=== PATIENT | female | born 1970 | race Caucasian/White ===

== ENCOUNTER 2024-12-26 13:53 | Observation (INO) | payer BC ==
[~2024-12-26] VITALS: Ht 152.4 cm; Wt 72.6 kg
[2024-12-26] MEDS ORDERED: Ketorolac Tromethamine 30 MG/ML VIAL IM ONE (14:05)
[2024-12-26] MEDS ORDERED: methylPREDNISolone sod succ 125 MG VIAL IM ONE (14:10)
[2024-12-26] MEDS ORDERED: MORPHINE Sulfate 2 MG/ML SYR IV ONE (14:15)
[2024-12-26] MEDS ORDERED: diazePAM 10 MG/2 ML SYR IV ONE (14:15)
[2024-12-26 15:08] VITALS: BP 144/93
[2024-12-26 15:47] VITALS: BP 127/84
[2024-12-26 17:00] VITALS: BP 148/85
[2024-12-26] MEDS ORDERED: ACETAMINOPHEN 650 MG SUPP R PRN (17:10)
[2024-12-26] MEDS ORDERED: BISACODYL 5 MG TAB PO PRN (17:10)
[2024-12-26] MEDS ORDERED: ACETAMINOPHEN 325 MG TAB PO PRN (17:10)
[2024-12-26] MEDS ORDERED: TEMAZEPAM 15 MG CAP PO PRN (17:10)
[2024-12-26] MEDS ORDERED: Magnesium Hydroxide 30 ML UDC PO PRN (17:10)
[2024-12-26] MEDS ORDERED: BISACODYL 10 MG SUPP R PRN (17:10)
[2024-12-26] MEDS ORDERED: Ondansetron Hydrochloride 4 MG/2 ML VIAL IV PRN (17:10)
[2024-12-26] MEDS ORDERED: ZEPBOUND7.5 MG/0.5 SQ (17:19)
[2024-12-26] MEDS ORDERED: GLIMEPIRIDE4 M1 PO (17:20)
[2024-12-26] MEDS ORDERED: LOSARTAN POTASS50 M1 PO (17:20)
[2024-12-26] MEDS ORDERED: TRADJENTA5 M1 PO (17:20)
[2024-12-26 17:29] LABS: BASO # 0.1 10*3/uL (0.0-0.1); BASO % 0.5 % (0.0-1.0); EOS # 0.2 10*3/uL (0.0-0.4); EOS % 1.9 % (1.0-4.0); MEAN CELL VOLUME 92.4 fl (81.0-99.0); MEAN CORPUSCULAR HGB 30.3 pg (27.0-31.0); MEAN CORPUSCULAR HGB CONC 32.7 g/dl (33.0-37.0); MEAN PLATELET VOLUME 8.8 fl (9.6-12.3); MONO # 0.7 10*3/uL (0.1-1.0); MONO % 6.6 % (3.0-9.0); NEUT # 6.4 10*3/uL (2.3-7.9); NEUT % 63.7 % (47.0-73.0); PLATELET COUNT AUTOMATED 337 10*3/uL (130-400); RED BLOOD COUNT 4.76 10*6/uL (4.10-5.10); RED CELL DISTRI WIDTH 12.4 % (0-14.5); WHITE BLOOD COUNT 10.1 10*3/uL (4.8-10.8)
[2024-12-26] MEDS ORDERED: Dexamethasone Sodium Phospha 20 MG/5 ML VIAL IV ONE (17:30)
[2024-12-26] MEDS ORDERED: DEXTROSE 50% 25 GM/50 ML VIAL IV PRN (17:35)
[2024-12-26 18:01] LABS: BUN 11 mg/dl (9-23); CHLORIDE 107 mmol/L (98-107); POTASSIUM 4.5 mmol/L (3.4-5.1)
[2024-12-26] MEDS ORDERED: ACETAMINOPHEN 325 MG TAB PO SCH (18:11)
[2024-12-26 20:00] VITALS: BP 153/91
[2024-12-26] MEDS ORDERED: IBUPROFEN 600 MG TAB PO SCH (20:00)
[2024-12-26] MEDS ORDERED: INSULIN LISPRO 1 UNIT/0.01 ML SQ SCH (22:00)
[2024-12-27] VITALS: BP 149/86
[2024-12-27 06:21] LABS: ALKALINE PHOSPHATASE 123 U/L (46-116); BASO % 0.2 % (0.0-1.0); BUN 12 mg/dl (9-23); CHLORIDE 104 mmol/L (98-107); CHOLESTEROL 228 mg/dL (<200); EOS % 0.2 % (1.0-4.0); HEMATOCRIT 41.3 % (37.0-47.0); LDL CHOLESTEROL 178 mg/dL (9-159); MEAN CELL VOLUME 90.6 fl (81.0-99.0); MEAN CORPUSCULAR HGB 30.7 pg (27.0-31.0); MEAN CORPUSCULAR HGB CONC 33.9 g/dl (33.0-37.0); MEAN PLATELET VOLUME 9.4 fl (9.6-12.3); MONO # 0.2 10*3/uL (0.1-1.0); MONO % 3.2 % (3.0-9.0); NEUT % 79.5 % (47.0-73.0); PLATELET COUNT AUTOMATED 318 10*3/uL (130-400); POTASSIUM 4.3 mmol/L (3.4-5.1); RED BLOOD COUNT 4.56 10*6/uL (4.10-5.10); RED CELL DISTRI WIDTH 12.2 % (0-14.5); SGPT/ALT 354 U/L (5-49); TOTAL PROTEIN 7.1 gm/dL (6.0-8.0); TRIGLYCERIDES 81 mg/dl (<150); WHITE BLOOD COUNT 6.3 10*3/uL (4.8-10.8)
[2024-12-27 08:00] VITALS: BP 194/87
[2024-12-27 08:21] LABS: VITAMIN D, 25-HYDROXY 25.9 ng/mL (30-100)
[2024-12-27] MEDS ORDERED: Enoxaparin Sodium 40 MG/0.4 ML SYR SC SCH (10:00)
[2024-12-27 12:00] VITALS: BP 169/96
[2024-12-27 16:00] VITALS: BP 166/68
[2024-12-27 20:00] VITALS: BP 171/93
[2024-12-28] VITALS: BP 144/65
[2024-12-28 05:45] LABS: ALKALINE PHOSPHATASE 93 U/L (46-116); BUN 14 mg/dl (9-23); CHLORIDE 106 mmol/L (98-107); POTASSIUM 3.7 mmol/L (3.4-5.1); SGPT/ALT 167 U/L (5-49); TOTAL PROTEIN 6.2 gm/dL (6.0-8.0)
[2024-12-28 06:09] LABS: BASO % 0.4 % (0.0-1.0); EOS # 0.2 10*3/uL (0.0-0.4); HEMATOCRIT 37.7 % (37.0-47.0); MEAN CELL VOLUME 92.2 fl (81.0-99.0); MEAN CORPUSCULAR HGB 30.8 pg (27.0-31.0); MEAN CORPUSCULAR HGB CONC 33.4 g/dl (33.0-37.0); MEAN PLATELET VOLUME 9.3 fl (9.6-12.3); MONO # 0.7 10*3/uL (0.1-1.0); MONO % 7.3 % (3.0-9.0); NEUT # 4.4 10*3/uL (2.3-7.9); PLATELET COUNT AUTOMATED 309 10*3/uL (130-400); RED BLOOD COUNT 4.09 10*6/uL (4.10-5.10); RED CELL DISTRI WIDTH 12.3 % (0-14.5); WHITE BLOOD COUNT 8.9 10*3/uL (4.8-10.8)
[2024-12-28] MEDS ORDERED: IBUPROFEN 600 MG TAB PO PRN (07:23)
[2024-12-28 08:00] VITALS: BP 155/92
[2024-12-28] MEDS ORDERED: Losartan Potassium 50 MG TAB PO SCH (10:00)
[2024-12-28] MEDS ORDERED: predniSONE 20 MG TAB PO SCH (10:00)
[2024-12-28] MEDS ORDERED: PREDNISONE10 MG PO (10:31)
== END 2024-12-28 12:20 | disposition home or self-care (01) ==
LOC: ED 13:53 → EDHOLD 16:21 → 4E 16:21
PROVIDERS: Student in an Organized Health Care Education/Training Program; ADMIT Internal Medicine; ATTEND Internal Medicine
DX: M79.2 Neuralgia and neuritis, unspecified (principal); E11.9 Type 2 diabetes mellitus without complications; I10 Essential (primary) hypertension; E78.5 Hyperlipidemia, unspecified; E55.9 Vitamin D deficiency, unspecified; R74.01 Elevation of levels of liver transaminase levels; M50.20 Other cervical disc displacement, unspecified cervical region; F17.210 Nicotine dependence, cigarettes, uncomplicated; Z79.899 Other long term (current) drug therapy

== ENCOUNTER 2025-03-15 09:29 | Emergency (ER) | payer BC ==
[~2025-03-15] VITALS: Ht 152.4 cm; Wt 75.3 kg
[~2025-03-15 09:29] MED LIST: GLIMEPIRIDE4 M1 PO; LOSARTAN POTASS50 M1 PO; PREDNISONE10 MG PO; TRADJENTA5 M1 PO; ZEPBOUND7.5 MG/0.5 SQ
[2025-03-15] MEDS ORDERED: Ondansetron Hydrochloride 4 MG/2 ML VIAL IV ONE (09:55)
[2025-03-15] MEDS ORDERED: SODIUM CHLORIDE 0.9% 1,000 ML IV ONE (09:55)
[2025-03-15 10:12] LABS: BASO # 0.0 10*3/uL (0.0-0.1); BASO % 0.3 % (0.0-1.0); EOS # 0.0 10*3/uL (0.0-0.4); EOS % 0.4 % (1.0-4.0); MEAN CELL VOLUME 90.0 fl (81.0-99.0); MEAN CORPUSCULAR HGB 30.0 pg (27.0-31.0); MEAN PLATELET VOLUME 9.0 fl (9.6-12.3); MONO # 0.7 10*3/uL (0.1-1.0); MONO % 8.8 % (3.0-9.0); NEUT # 5.7 10*3/uL (2.3-7.9); NEUT % 76.7 % (47.0-73.0); NUCLEATED RED BLOOD CELL 0.0 % (0.0-0.0); NUCLEATED RED BLOOD CELL 0.0 10*3/uL (0.0-0.0); PLATELET COUNT AUTOMATED 238 10*3/uL (130-400); RED CELL DISTRI WIDTH 12.7 % (0-14.5)
[2025-03-15 10:30] LABS: BUN 10 mg/dl (9-23)
[2025-03-15 11:37] LABS: BILIRUBIN Negative (Negative); BLOOD Trace-Lysed (Negative); CLARITY Turbid (Clear); COLOR Yellow (Yellow); KETONE 1+ (Negative); LEUKO ESTERASE 1+ (Negative); NITRITE Negative (Negative); PH 5.5 (4.5-8.0); SPECIFIC GRAVITY 1.025 (1.001-1.030); UROBILINOGEN 0.2 E.U./dl (0.0-1.0)
[2025-03-15 11:50] LABS: BACTERIA 3+; EPITHELIAL CELLS 21-30
[2025-03-15 11:51] LABS: RBC 0-2 rbc/hpf (0-2)
[2025-03-15] MEDS ORDERED: metroNIDAZOLE 500 MG TAB PO ONE (12:10)
[2025-03-15] MEDS ORDERED: Ciprofloxacin Hydrochloride 500 MG TAB PO ONE (12:10)
[2025-03-15] MEDS ORDERED: POTASSIUM CHLORIDE 20 MEQ TAB PO ONE (12:10)
[2025-03-15] MEDS ORDERED: CIPRO500 MG PO (12:14)
[2025-03-15] MEDS ORDERED: DICYCLOMINE HYD20 MG PO (12:14)
[2025-03-15] MEDS ORDERED: METRONIDAZOLE500 M1 PO (12:14)
== END 2025-03-15 12:19 | disposition home or self-care (01) ==
LOC: ED 09:29
PROVIDERS: Emergency Medicine
DX: K52.9 Noninfective gastroenteritis and colitis, unspecified (principal); R53.1 Weakness; Z98.890 Other specified postprocedural states; Z90.49 Acquired absence of other specified parts of digestive tract